=== PATIENT | male | born 1985 | race Caucasian/White ===

== ENCOUNTER 2020-11-18 17:36 | Emergency (ER) | payer SELFPAY ==
[~2020-11-18] VITALS: Ht 172.7 cm; Wt 76.0 kg
[2020-11-18 17:56] VITALS: BP 120/62
[2020-11-18] MEDS ORDERED: ACETAMINOPHEN 325MG TABLET PO ONE (20:15)
[2020-11-18] MEDS ORDERED: ONDANSETRON 4MG ODT PO ONE (20:15)
[2020-11-18] MEDS ORDERED: BACITRACIN 15GM TUBE TOP ONE (20:30)
[2020-11-18] MEDS ORDERED: BACITRACIN ZINC OINT UDPKT TOP ONE (20:45)
== END 2020-11-18 21:45 | disposition home or self-care (01) ==
LOC: ER 17:36
DX: S01.01XA Laceration without foreign body of scalp, initial encounter (principal); W22.8XXA Striking against or struck by other objects, initial encounter; Y93.9 Activity, unspecified; Y92.89 Other specified places as the place of occurrence of the external cause
CPT/HCPCS: 99283

== ENCOUNTER 2020-11-24 14:27 | Emergency (ER) | payer SELFPAY ==
[~2020-11-24] VITALS: Ht 175.3 cm; Wt 75.0 kg
[2020-11-24 14:42] VITALS: BP 125/79
[2020-11-24] MEDS ORDERED: TETANUS, DIPHTHERIA, PERTUSSIS VAC/PF 0.5ML (>10YR OLD) IM ONE (15:00)
== END 2020-11-24 15:07 | disposition home or self-care (01) ==
LOC: ER 14:27
DX: A36.89 Other diphtheritic complications (principal)
CPT/HCPCS: 90471; 90715; 99283